=== PATIENT | male | born 1990 | race Caucasian/White ===

== ENCOUNTER 2017-01-01 17:45 | Emergency (ER) | payer SELFPAY ==
[~2017-01-01] VITALS: Ht 152.4 cm; Wt 74.8 kg
[2017-01-01] MEDS ORDERED: CLIN300C11 PO (18:13)
--- NOTE | 2017-01-01 18:42 | ED General ---
General Chief Complaint: Chest Pain Stated Complaint: CP Nursing Triage Note: pt reports stabbing chest pain starting wednesday, worsening today, with nausea. pt currently being treated with clindamycin for cellulitis/possible bug bite to lower right abd. Nursing Sepsis Screen: No Definite Risk Source of Information: Patient Exam Limitations: No Limitations (JOSÉ MOSS) History of Present Illness Time Seen by Provider: 18:42 Initial Comments Patient seen, evaluated, and patient care provided by Dr. Lopes. (JOSÉ MOSS) Initial Comments This 26 year old young man presents to the emergency room with substernal chest pain taht started about 2 days ago. The pain is relatively constant but he believes it is somewhat worse while eating. He has a sharp pain after completion of swallowing. Pain does not change with activity. It is occasionally worse with a very deep breath. He has not taken any medications for this pain. He has a small furuncle on the right abdomen for which he is taking clindamycin. The chest pain started around the same time he started the clindamycin 2 days ago. He does have a remote history of acid reflux. He rarely drinks alcohol and rarely uses tobacco. He has no history of prior episodes. 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 (KHRIS MONTIEL MD) Allergies and Home Medications Allergies Coded Allergies: No Known Drug Allergies (Unverified , 01/01/17) Home Medications Clindamycin HCl 300 Mg Capsule, 300 MG PO TID, (Reported) Omeprazole 20 Mg Capsule.dr, 20 MG PO BID, #30 Prescribed by: KHRIS LOPES on 01/01/17 8154 Constitutional: no symptoms reported EENTM: no symptoms reported Respiratory: see HPI Cardiovascular: no symptoms reported Gastrointestinal: see HPI Genitourinary: no symptoms reported Musculoskeletal: no symptoms reported Skin: no symptoms reported Psychiatric/Neurological: No Symptoms Reported Hematologic/Lymphatic: No Symptoms Reported Immunological/Allergic: no symptoms reported (KHRIS MONTIEL MD) Past Emdulck-Vpvutw-Dvavhk Hx Patient Social History Alcohol Use: Rarely Uses Recreational Drug Use: No Smoking Status: Never a Smoker 2nd Hand Smoke Exposure: Yes Recent Foreign Travel: No Contact w/Someone Who Travel: No Recent Infectious Disease Expo: No Recent Hopitalizations: No (JOSÉ MOSS) Immunizations Up To Date Tetanus Booster (TDap): More than 5yrs (JOSÉ MOSS) Seasonal Allergies Seasonal Allergies: No (JOSÉ MOSS) Surgeries History of Surgeries: Yes (ear tubes) Surgeries: Adenoidectomy (JOSÉ MOSS) Surgeries: Ear Surgery (TM tubes) (KHRIS MONTIEL MD) Respiratory History of Respiratory Disorde: No (JOSÉ MOSS) Cardiovascular History of Cardiac Disorders: No (JOSÉ MOSS) Neurological History of Neurological Disord: No (JOSÉ MOSS) Reproductive System Sexually Transmitted Disease: No (JOSÉ MOSS) Genitourinary History of Genitourinary Disor: No (JOSÉ MOSS) Gastrointestinal History of Gastrointestinal Di: Yes Gastrointestinal Disorders: Irritable Bowel (JOSÉ MOSS) Gastrointestinal Disorders: Gastroesophageal Reflux (KHRIS MONTIEL MD) Musculoskeletal History of Musculoskeletal Dis: Yes Musculoskeletal Disorders: Scoliosis (JOSÉ MOSS) Endocrine History of Endocrine Disorders: No (borderline diabetic) (JOSÉ MOSS) HEENT History of HEENT Disorders: No (JOSÉ MOSS) Cancer History of Cancer: No (JOSÉ MOSS) Psychosocial History of Psychiatric Problem: No (JOSÉ MOSS) Integumentary History of Skin or Integumenta: Yes (currently being treated for cellulitis/ bug bite) Skin/Integumentary Disorders: Recent Skin Changes (JOSÉ MOSS) Blood Transfusions History of Blood Disorders: No (JOSÉ MOSS) Physical Exam Vital Signs Vital Sign - Last 12Hours 01/01/17 01/01/17 18:07 18:13 Temp 99.0 Pulse 108 Resp 18 B/P (MAP) 125/89 Pulse Ox 96 O2 Delivery Room Air (KHRIS MONTIEL MD) Vital Signs Capillary Refill : Less Than 3 Seconds (JOSÉ MOSS) General Appearance: No Apparent Distress, WD/WN HEENT: PERRL/EOMI, Normal ENT Inspection Neck: Normal Inspection Respiratory: Lungs Clear, Normal Breath Sounds, No Accessory Muscle Use, No Respiratory Distress, Other (pain worsens when pressure applied to the sternal area) Cardiovascular: Regular Rate, Rhythm, No Edema, Normal Peripheral Pulses Gastrointestinal: Normal Bowel Sounds, Non Tender, Soft Extremity: Normal Inspection Neurologic/Psychiatric: Alert, Oriented x3, No Motor/Sensory Deficits, Normal 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 No fluctuant collection to drain.) (KHRIS MONTIEL MD) Progress/Results/Core Measures Results/Orders Lab Results Laboratory Tests Test 01/01/17 20:10 Range/Units White Blood Count 11.5 H 4.3-11.0 10^3/uL Red Blood Count 5.12 4.35-5.85 10^6/uL Hemoglobin 14.3 13.3-17.7 G/DL Hematocrit 42 40-54 % Mean Corpuscular Volume 82 80-99 FL Mean Corpuscular Hemoglobin 28 25-34 PG Mean Corpuscular Hemoglobin Concent 34 32-36 G/DL Red Cell Distribution Width 12.6 10.0-14.5 % Platelet Count 392 130-400 10^3/uL Mean Platelet Volume 8.6 7.4-10.4 FL Neutrophils (%) (Auto) 67 42-75 % Lymphocytes (%) (Auto) 22 12-44 % Monocytes (%) (Auto) 9 0-12 % Eosinophils (%) (Auto) 2 0-10 % Basophils (%) (Auto) 1 0-10 % Neutrophils # (Auto) 7.7 1.8-7.8 X 10^3 Lymphocytes # (Auto) 2.5 1.0-4.0 X 10^3 Monocytes # (Auto) 1.1 H 0.0-1.0 X 10^3 Eosinophils # (Auto) 0.2 0.0-0.3 10^3/uL Basophils # (Auto) 0.1 0.0-0.1 10^3/uL D-Dimer 0.29 0.00-0.49 UG/ML Sodium Level 140 135-145 MMOL/L Potassium Level 4.0 3.6-5.0 MMOL/L Chloride Level 104 98-107 MMOL/L Carbon Dioxide Level 21 21-32 MMOL/L Anion Gap 15 H 5-14 MMOL/L Blood Urea Nitrogen 15 7-18 MG/DL Creatinine 0.81 0.60-1.30 MG/DL Estimat Glomerular Filtration Rate > 60 BUN/Creatinine Ratio 19 Glucose Level 169 H 70-105 MG/DL Calcium Level 9.7 8.5-10.1 MG/DL Magnesium Level 2.1 1.8-2.4 MG/DL Total Bilirubin 0.2 0.1-1.0 MG/DL Aspartate Amino Transf (AST/SGOT) 24 5-34 U/L Alanine Aminotransferase (ALT/SGPT) 40 0-55 U/L Alkaline Phosphatase 66 40-136 U/L Troponin I < 0.30 <0.30 NG/ML Total Protein 7.2 6.4-8.2 GM/DL Albumin 4.0 3.2-4.5 GM/DL (KHRIS MONTIEL MD) My Orders Orders - KHRIS MONTIEL MD Lidocaine 2% Viscous 15 Ml (Xylocaine Vi (01/01/17 18:45) Antacid Suspension (Mylanta Suspension (01/01/17 18:45) Cbc With Automated Diff (01/01/17 19:35) Comprehensive Metabolic Panel (01/01/17 19:35) Magnesium (01/01/17 19:35) Troponin I (01/01/17 19:35) Chest Pa/Lat (2 View) (01/01/17 19:35) Ekg Tracing (01/01/17 19:35) Monitor-Rhythm Ecg Trace Only (01/01/17 19:35) Fibrin Degradation Products (01/01/17 20:01) Saline Lock/Iv-Start (01/01/17 20:02) (KHRIS MONTIEL MD) Medications Given in ED (KHRIS MONTIEL MD) Vital Signs/I&O (KHRIS MONTIEL MD) Blood Pressure Mean: 101 Progress Note #1: Time: 19:34 Progress Note Patient reports GI cocktail did not improve his pain. He also now wants to correct his history from earlier and states that the pain is sometimes worse with activity. labs, EKG and x-ray will now be performed. Progress Note #2: Progress Note Workup remained unremarkable. Patient may have sensitivity due to clindamycin or acid reflux. He was advised to start an antacid therapy and follow dietary restrictions. He was dismissed to outpatient follow-up. (KHRIS MONTIEL MD) ECG Initial ECG Impression Date: Jan 01, 2017 Initial ECG Impression Time: 20:37 Initial ECG Rate: 92 Initial ECG Rhythm: Normal Sinus Initial ECG Intervals: Normal Comment Normal sinus rhythm with no ST elevation or depression. No abnormal intervals or axis deviation. (KHRIS MONTIEL MD) Diagnostic Imaging Diagonstic Imaging: Xray Plain Films/CT/US/NM/MRI: chest Comments Chest x-ray viewed by me. Report reviewed. See report below: NAME: RACHEL DUQUE [facility] REC#: [id number] PT STATUS: REG ER : 1990 PHYSICIAN: KHRIS MONTIEL MD ADMIT DATE: 01/01/17/ER Signed Date of Exam: 01/01/17 CHEST PA/LAT (2 VIEW) INDICATION: Chest pain for two days. EXAMINATION: PA and lateral chest. FINDINGS: Heart size and pulmonary vascularity are normal. Lungs are clear. There are no effusions or pneumothoraces. IMPRESSION: Negative chest. Dictated by: Dictated on workstation # [id number] Dict: 01/01/171950 Trans: 01/01/171957 Interpreted by: BRUNO FLORES Electronically signed by: BRUNO FLORES 01/01/171957 (KHRIS MONTIEL MD) Departure Impression Impression: Primary Impression: Atypical chest pain Additional Impression: Furuncle of abdominal wall Disposition: 01 HOME, SELF-CARE Condition: Stable Departure-Patient Inst. Decision time for Depature: 21:34 (KHRIS MONTIEL MD) Referrals: NO,LOCAL PHYSICIAN (PCP) Primary Care Physician Patient Instructions: Chest Pain That Is Not Caused by the Heart (DC) Add. Discharge Instructions: The exact cause of your chest discomfort is not known at this time but it could be related to acid reflux and irritation from your antibiotics. Take your antibiotic with food or milk. Take omeprazole twice daily for the next 2 weeks. Follow-up with your primary care provider within the next week. Return to care if symptoms worsen. Avoid the following: Large meals, eating close to bedtime, carbonation, caffeine, chocolate, alcohol, tobacco products, tomato products, citrus fruits and juices, mints, spicy foods, fatty or greasy foods, or anything else you know irritates your stomach. All discharge instructions reviewed with patient and/or family. Voiced understanding. Scripts Omeprazole (Omeprazole) 20 Mg Capsule. 20 MG PO BID, #30 CAP Prov: KHRIS MONTIEL MD 01/01/17 JOSÉ MOSS Jan 01, 2017 18:42 KHRIS MONTIEL MD Jan 01, 2017 19:06
[2017-01-01] MEDS ORDERED: ANTACID SUSP 30 ML UDC (MYLANTA) PO ONE (18:45)
[2017-01-01] MEDS ORDERED: LIDOCAINE 2% VISCOUS 15 ML UDC PO ONE (18:45)
--- NOTE | 2017-01-01 19:54 | Diagnostic Imaging Report ---
INDICATION: Chest pain for two days. EXAMINATION: PA and lateral chest. FINDINGS: Heart size and pulmonary vascularity are normal. Lungs are clear. There are no effusions or pneumothoraces. IMPRESSION: Negative chest. Dictated by: Dictated on workstation # [id number]
[2017-01-01 20:16] LABS: BASOPHILS # (AUTO) 0.1 10^3/uL (0.0-0.1); BASOPHILS % (AUTO) 1 % (0-10); EOSINOPHILS # (AUTO) 0.2 10^3/uL (0.0-0.3); EOSINOPHILS % (AUTO) 2 % (0-10); LYMPHOCYTES # (AUTO) 2.5 X 10^3 (1.0-4.0); LYMPHOCYTES % (AUTO) 22 % (12-44); MEAN CORPUSCULAR HEMOGLOBIN 28 PG (25-34); MEAN CORPUSCULAR HGB CONC 34 G/DL (32-36); MEAN CORPUSCULAR VOLUME 82 FL (80-99); MEAN PLATELET VOLUME 8.6 FL (7.4-10.4); MONOCYTES # (AUTO) 1.1 X 10^3 (0.0-1.0); MONOCYTES % (AUTO) 9 % (0-12); NEUTROPHILS # (AUTO) 7.7 X 10^3 (1.8-7.8); NEUTROPHILS % (AUTO) 67 % (42-75); PLATELET COUNT 392 10^3/uL (130-400); RED BLOOD COUNT 5.12 10^6/uL (4.35-5.85); RED CELL DISTRIBUTION WIDTH 12.6 % (10.0-14.5); WHITE BLOOD COUNT 11.5 10^3/uL (4.3-11.0)
[2017-01-01 20:38] LABS: ALANINE AMINOTRANSFERASE 40 U/L (0-55); ANION GAP 15 MMOL/L (5-14); ASPARTATE AMINO TRANSFERASE 24 U/L (5-34); BILIRUBIN,TOTAL 0.2 MG/DL (0.1-1.0); BLOOD UREA NITROGEN 15 MG/DL (7-18); BUN/CREATININE RATIO 19; CALCIUM 9.7 MG/DL (8.5-10.1); CARBON DIOXIDE 21 MMOL/L (21-32); CHLORIDE 104 MMOL/L (98-107); CREATININE SERUM 0.81 MG/DL (0.60-1.30); GFR ESTIMATED > 60; GLUCOSE 169 MG/DL (70-105); MAGNESIUM 2.1 MG/DL (1.8-2.4); SODIUM 140 MMOL/L (135-145); TOTAL PROTEIN 7.2 GM/DL (6.4-8.2)
[2017-01-01 20:44] LABS: TROPONIN I < 0.30 NG/ML (<0.30)
[2017-01-01] MEDS ORDERED: OMEP20CA12 PO (21:36)
[2017-01-01 21:42] VITALS: BP 125/78
== END 2017-01-01 21:44 | disposition home or self-care (01) ==
LOC: ER 17:48
DX: R07.89 Other chest pain (principal); L02.221 Furuncle of abdominal wall; K21.9 Gastro-esophageal reflux disease without esophagitis; M41.20 Other idiopathic scoliosis, site unspecified; Z90.89 Acquired absence of other organs; Z87.19 Personal history of other diseases of the digestive system
CPT/HCPCS: 36415; 71020; 80053; 83735; 84484; 85025; 85379; 93005; 93041

== ENCOUNTER 2018-09-25 07:36 | Emergency (ER) | payer SELFPAY ==
[~2018-09-25] VITALS: Ht 152.4 cm; Wt 79.4 kg
[~2018-09-25 07:36] MED LIST: CLIN300C11 PO; OMEP20CA12 PO
--- OUTSIDE RECORDS SUMMARY | 2018-09-25 07:41 | XMS REPORT ---
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 Active 582832031 Problem Non morbid obesity due to excess calories E66.09 Active 561167990 Problem Elevated hemoglobin A1c R73.09 Active 781448772 Problem Episodic cluster headache, not intractable G44.019 Active 970717334 ALLERGIES No Known Allergies ENCOUNTERS Encounter Location Date Diagnosis [place] [address] [place] [id number] [place] [phone] Mar, [facility] [address] [address] Feb, [place] [id number] [place] [phone] 26 Jan, 2018 Pain in left shoulder M25.512 ; Other chronic pain G89.29 ; 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 ; Substernal chest pain R07.2 and Elevated hemoglobin A1c R73.09 [facility] [id number] [place] [address] Jan, [facility] [address] [address] Jan, Acute nasopharyngitis (common cold) J00 ; Intractable episodic headache, unspecified headache type R51 and Post-nasal drip R09.82 [place] [id number] [place] [address] Jan, [place] [address] [address] 12 Jan, 2017 Elevated hemoglobin A1c R73.09 [place] [id number] [place] [address] 11 Jan, 2017 [place] [id number] [place] [phone] 08 Jan, 2017 Frequent stools K52.9 and Non morbid obesity due to excess calories E66.09 [place] [id number] [place] [address] Dec, [place] [id number] [place] [address] Dec, [place] [id number] [place] [phone] Dec, [facility] [place] [id number] [place] [phone] Dec, Abscess L02.91 [facility] [place] [id number] [place] [address] Dec, Abscess, abdomen K65.1 [place] [id number] [place] [phone] Aug, Frequent stools K52.9 and Non morbid obesity due to excess calories E66.09 [place] [id number] [place] [phone] Mar, [place] [id number] [place] [phone] Mar, IMMUNIZATIONS No Known Immunizations SOCIAL HISTORY Never Assessed REASON FOR VISIT shoulder/wrist pain Pt c/o hurting L shoulder at work, also c/o L wrist pain and that his L wrist goes completely numb at times causing him to drop items. He a lso has chest pain at times which "drops him to his knees" which has been going on for 7 years. Pt is needing a note to clear him of heart issues, and cleared of injury to wrist and shoulder for work SEGUNDO Keenan PLAN OF CARE Activity Details Follow Up 4 Weeks Reason:pain VITAL SIGNS Height 60 in 2018-02-02 Weight 182.7 lbs 2018-02-02 Temperature 98.4 degrees Fahrenheit 2018-02-02 Heart Rate 88 bpm 2018-02-02 Respiratory Rate 18 2018-02-02 Oximetry 98 % 2018-02-02 BMI 35.68 kg/m2 2018-02-02 Blood pressure systolic 120 mmHg 2018-02-02 Blood pressure diastolic 80 mmHg 2018-02-02 MEDICATIONS Medication Instructions Dosage Frequency Start Date End Date Duration Status Protonix 40 mg Orally Once a day 1 tablet 24h Jan, 30 day(s) Active Flonase 50 MCG/ACT Nasally twice a day 1 spray in each nostril 12h Jan, 7 days Not-Taking RESULTS Name Result Date Reference Range A1C (IN HOUSE) 2018-02-02 A1C IN HOUSE 8.2 4.3 - 5.6 % Previous A1c Lot [id number] Exp date 07/2019 Xray : Shoulder, Left 2 view (IN HOUSE) 2018-02-02 PROCEDURES Procedure Date Ordered Result Body Site X-RAY EXAM OF SHOULDER Feb 02, 2018 GLYCATED HEMOGLOBIN TEST Feb 02, 2018 INSTRUCTIONS MEDICATIONS ADMINISTERED No Known Medications MEDICAL (GENERAL) HISTORY Type Description Date Medical History scoliosis Surgical History Adenoids removed Surgical History tubes in ears bilaterally Hospitalization History Spider Bite
--- OUTSIDE RECORDS SUMMARY | 2018-09-25 07:41 | XMS REPORT ---
Author Author AYUSH GOMEZ [facility] Address [address] [place] [address] Care Team Providers Care Wine Cellar Stock Clerk Name Role Phone AYUSH GOMEZ Unavailable PROBLEMS Type Condition ICD9-CM Code RRC15-ZN Code Onset Dates Condition Status SNOMED Code Problem Elevated hemoglobin A1c R73.09 Active 869829077 Problem Episodic cluster headache, not intractable G44.019 Active 763951692 Problem Non morbid obesity due to excess calories E66.09 Active 047732699 ALLERGIES No Information ENCOUNTERS Encounter Location Date Diagnosis [facility] [address] [address] 13 Jan, 2017 [facility] [address] [address] Jan, Elevated hemoglobin A1c R73.09 [facility] [address] [address] Jan, [facility] [address] [address] 08 Jan, 2017 Frequent stools K52.9 and Non morbid obesity due to excess calories E66.09 [facility] [address] [address] Dec, [facility] [address] [place] [id number] [place] [address] Dec, [facility] [address] [address] Dec, [facility] [address] [id number] [place] [address] Dec, Abscess L02.91 [facility] [address] [address] Dec, Abscess, abdomen K65.1 [place] [address], [place] [address] 13 Aug, 2016 Frequent stools K52.9 and Non morbid obesity due to excess calories E66.09 [place] [address], [place] [address] Mar, [place] [address] [place] [address] Mar, IMMUNIZATIONS No Known Immunizations SOCIAL HISTORY Never Assessed REASON FOR VISIT Lab results PLAN OF CARE VITAL SIGNS MEDICATIONS Unknown Medications RESULTS No Results PROCEDURES No Known procedures INSTRUCTIONS MEDICATIONS ADMINISTERED No Known Medications MEDICAL (GENERAL) HISTORY Type Description Date Medical History scoliosis Surgical History Adenoids removed, still has tonsils Hospitalization History Spider Bite
--- OUTSIDE RECORDS SUMMARY | 2018-09-25 07:41 | XMS REPORT ---
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 004842217 Problem Non morbid obesity due to excess calories E66.09 Active 896595763 Problem Elevated hemoglobin A1c R73.09 Active 580860640 Problem Episodic cluster headache, not intractable G44.019 Active 123489914 ALLERGIES No Known Allergies ENCOUNTERS Encounter Location Date Diagnosis [facility] [id number] [place] [address] Mar, [facility] [id number] [place] [address] Jan, Pain in left shoulder M25.512 ; Other chronic pain G89.29 ; 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 ; Substernal chest pain R07.2 and Elevated hemoglobin A1c R73.09 [facility] [id number] [place] [address] Jan, [facility] [id number] [place] [address] Jan, Acute nasopharyngitis (common cold) J00 ; Intractable episodic headache, unspecified headache type R51 and Post-nasal drip R09.82 [facility] [id number] [place] [address] Jan, [facility] [id number] [place] [address] Jan, Elevated hemoglobin A1c R73.09 [facility] [address] [place] [address] 11 Jan, 2017 [place] [address] [id number] [place] [address] 08 Jan, 2017 Frequent stools K52.9 and Non morbid obesity due to excess calories E66.09 [place] [id number] [place] [address] Dec, [place] [id number] [place] [address] Dec, [place] [id number] [place] [address] Dec, [facility] [place] [id number] [place] [address] Dec, Abscess L02.91 [facility] [place] [id number] [place] [address] Dec, Abscess, abdomen K65.1 [place] [id number] [place] [address] Aug, Frequent stools K52.9 and Non morbid obesity due to excess calories E66.09 [place] [id number] [place] [phone] Mar, [place] [id number] [place] [address] Mar, IMMUNIZATIONS No Known Immunizations SOCIAL HISTORY Never Assessed REASON FOR VISIT sore throat, cough, runny et stuffy nose, congestion for 4 days. [email or web address] PLAN OF CARE Activity Details Follow Up prn Reason: VITAL SIGNS Height 60 in 2018-01-13 Weight 181.4 lbs 2018-01-13 Temperature 98.9 degrees Fahrenheit 2018-01-13 Heart Rate 86 bpm 2018-01-13 Respiratory Rate 20 2018-01-13 BMI 35.42 kg/m2 2018-01-13 Blood pressure systolic 136 mmHg 2018-01-13 Blood pressure diastolic 78 mmHg 2018-01-13 MEDICATIONS Medication Instructions Dosage Frequency Start Date End Date Duration Status Flonase 50 MCG/ACT Nasally twice a day 1 spray in each nostril 12Jan, 07 days Active RESULTS No Results PROCEDURES No Known procedures INSTRUCTIONS MEDICATIONS ADMINISTERED No Known Medications MEDICAL (GENERAL) HISTORY Type Description Date Medical History scoliosis Surgical History Adenoids removed Surgical History tubes in ears bilaterally Hospitalization History Spider Bite
--- OUTSIDE RECORDS SUMMARY | 2018-09-25 07:41 | XMS REPORT ---
Author Author EDWIGE Gold [facility] Address [address] [place] [address] Care Team Providers Care Fine Dining Server Name Role Phone EDWIGE Gold Unavailable PROBLEMS Type Condition ICD9-CM Code EBA53-GH Code Onset Dates Condition Status SNOMED Code Problem Elevated hemoglobin A1c R73.09 Active 728036536 Problem Episodic cluster headache, not intractable G44.019 Active 720750305 Problem Non morbid obesity due to excess calories E66.09 Active 068560690 ALLERGIES No Information ENCOUNTERS Encounter Location Date Diagnosis [facility] [address] [address] 13 Jan, 2017 [facility] [address] [address] 12 Jan, 2017 Elevated hemoglobin A1c R73.09 [facility] [address] [address] Jan, [facility] [id number] [place] [address] Jan, Frequent stools K52.9 and Non morbid obesity due to excess calories E66.09 [facility] [id number] [place] [address] Dec, [facility] [id number] [place] [address] Dec, [facility] [address] [address] Dec, [facility] [id number] [place] [address] Dec, Abscess L02.91 [facility] [address] [place] [address] 16 Dec, 2016 Abscess, abdomen K65.1 [place] [address] [address] 13 Aug, 2016 Frequent stools K52.9 and Non morbid obesity due to excess calories E66.09 [place] [id number] [place] [address] 11 Mar, 2009 [place] [address] [place] [address] Mar, IMMUNIZATIONS No Known Immunizations SOCIAL HISTORY Never Assessed REASON FOR VISIT TRIAGE PLAN OF CARE VITAL SIGNS MEDICATIONS Unknown Medications RESULTS No Results PROCEDURES No Known procedures INSTRUCTIONS MEDICATIONS ADMINISTERED No Known Medications MEDICAL (GENERAL) HISTORY Type Description Date Medical History scoliosis Surgical History Adenoids removed, still has tonsils Hospitalization History Spider Bite
--- OUTSIDE RECORDS SUMMARY | 2018-09-25 07:41 | XMS REPORT ---
Author Author AYUSH GOMEZ [facility] Address [address] [place] [address] Care Team Providers Care Strategic Partnership Manager Name Role Phone AYUSH GOMEZ Unavailable PROBLEMS Type Condition ICD9-CM Code PVR16-UJ Code Onset Dates Condition Status SNOMED Code Problem Elevated hemoglobin A1c R73.09 Active 459436292 Problem Episodic cluster headache, not intractable G44.019 Active 578651399 Problem Non morbid obesity due to excess calories E66.09 Active 996984333 ALLERGIES No Information ENCOUNTERS Encounter Location Date Diagnosis [facility] [address] [address] 13 Jan, 2017 [facility] [address] [address] Jan, Elevated hemoglobin A1c R73.09 [facility] [address] [address] Jan, [facility] [address] [address] 08 Jan, 2017 Frequent stools K52.9 and Non morbid obesity due to excess calories E66.09 [facility] [address] [address] Dec, [facility] [address] [place] [id number] [place] [address] Dec, [facility] [address] [address] Dec, [facility] [id number] [place] [address] Dec, Abscess L02.91 [facility] [address] [address] Dec, Abscess, abdomen K65.1 [place] [address] [address] 13 Aug, 2016 Frequent stools K52.9 and Non morbid obesity due to excess calories E66.09 [place] [address] [address] Mar, [place] [address] [address] Mar, IMMUNIZATIONS No Known Immunizations SOCIAL HISTORY Never Assessed REASON FOR VISIT Paperwork PLAN OF CARE VITAL SIGNS MEDICATIONS Unknown Medications RESULTS No Results PROCEDURES No Known procedures INSTRUCTIONS MEDICATIONS ADMINISTERED No Known Medications MEDICAL (GENERAL) HISTORY Type Description Date Medical History scoliosis Surgical History Adenoids removed, still has tonsils Hospitalization History Spider Bite
--- OUTSIDE RECORDS SUMMARY | 2018-09-25 07:41 | XMS REPORT ---
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 Active 494309390 Problem Non morbid obesity due to excess calories E66.09 Active 220063430 Problem Elevated hemoglobin A1c R73.09 Active 465478896 Problem Episodic cluster headache, not intractable G44.019 Active 987346737 ALLERGIES No Information ENCOUNTERS Encounter Location Date Diagnosis [place] [address] [address] Mar, [facility] [address] [address] Feb, [place] [address] [address] Feb, [place] [address] [address] Jan, Pain in left shoulder M25.512 ; Other chronic pain G89.29 ; 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 ; Substernal chest pain R07.2 and Elevated hemoglobin A1c R73.09 [facility] [address] [address] Jan, [facility] [address] [address] 06 Jan, 2018 Acute nasopharyngitis (common cold) J00 ; Intractable episodic headache, unspecified headache type R51 and Post-nasal drip R09.82 [place] [address], [place] [address] 13 Jan, 2017 [facility] [address] [id number] [place] [address] 12 Jan, 2017 Elevated hemoglobin A1c R73.09 [facility] [address] [place] [address] 11 Jan, 2017 [facility] [address] [place] [id number] [place] [address] Jan, Frequent stools K52.9 and Non morbid obesity due to excess calories E66.09 [place] [address] [place] [address] [id number] [place] [address] Dec, [facility] [address] [place] [id number] [place] [address] Dec, [facility] [address] [id number] [place] [address] Dec, [facility] [address] [place] [address] Dec, Abscess L02.91 [facility] [id number] [place] [address] 16 Dec, 2016 Abscess, abdomen K65.1 [facility] [address] [place] [address] Aug, Frequent stools K52.9 and Non morbid obesity due to excess calories E66.09 [facility] [address], [place] [address] Mar, [facility] [address] [place] [id number] [place] [address] Mar, IMMUNIZATIONS No Known Immunizations SOCIAL HISTORY Never Assessed REASON FOR VISIT Xray results PLAN OF CARE VITAL SIGNS MEDICATIONS Unknown Medications RESULTS No Results PROCEDURES No Known procedures INSTRUCTIONS MEDICATIONS ADMINISTERED No Known Medications MEDICAL (GENERAL) HISTORY Type Description Date Medical History scoliosis Surgical History Adenoids removed Surgical History tubes in ears bilaterally Hospitalization History Spider Bite
--- OUTSIDE RECORDS SUMMARY | 2018-09-25 07:41 | XMS REPORT ---
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 Active 757612416 Problem Other chronic pain G89.29 Active 01143930 ALLERGIES No Known Allergies ENCOUNTERS Encounter Location Date Diagnosis [facility] [address] [address] Apr, Witnessed apneic spells R06.81 ; Snoring R06.83 and Excessive sleepiness G47.10 [facility] [address] [place] [id number] [place] [address] Feb, [facility] [id number] [place] [address] Feb, [facility] [address] [place] [id number] [place] [address] Jan, Pain in left shoulder M25.512 ; Other chronic pain G89.29 ; 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 ; Substernal chest pain R07.2 and Elevated hemoglobin A1c R73.09 [facility] [id number] [place] [address] Jan, [facility] [address] [address] 06 Jan, 2018 Acute nasopharyngitis (common cold) J00 ; Intractable episodic headache, unspecified headache type R51 and Post-nasal drip R09.82 [place] [address] [place] [address] [id number] [place] [address] 13 Jan, 2017 [place] [address] [place] [id number] [place] [address] Jan, Elevated hemoglobin A1c R73.09 [place] [address] [address] Jan, [place] [address] [address] 08 Jan, 2017 Frequent stools K52.9 and Non morbid obesity due to excess calories E66.09 [place] [address] [address] Dec, [place] [address] [address] Dec, [place] [address] [place] [id number] [place] [address] Dec, [facility] [place] [address] [place] [address] [id number] [place] [address] Dec, Abscess L02.91 [facility] [place] [address] [place] [id number] [place] [address] Dec, Abscess, abdomen K65.1 [place] [address] [place] [id number] [place] [address] 13 Aug, 2016 Frequent stools K52.9 and Non morbid obesity due to excess calories E66.09 [place] [address] [address] Mar, [place] [address] [place] [id number] [place] [address] Mar, IMMUNIZATIONS No Known Immunizations SOCIAL HISTORY Never Assessed REASON FOR VISIT sleep concerns-twooden,RMA, pt complaining about not able to sleep at night and he is having real bad head aches and snoring PLAN OF CARE Activity Details Follow Up prn Reason: Future/Pending Procedure SLEEP STUDY (HOSPITAL) VITAL SIGNS Height 60 in 2018-04-27 Weight 182.6 lbs 2018-04-27 Temperature 97.8 degrees Fahrenheit 2018-04-27 Heart Rate 80 bpm 2018-04-27 Respiratory Rate 18 2018-04-27 Oximetry on room air:98 % 2018-04-27 BMI 35.66 kg/m2 2018-04-27 Blood pressure systolic 120 mmHg 2018-04-27 Blood pressure diastolic 100 mmHg 2018-04-27 MEDICATIONS No Known Medications RESULTS No Results PROCEDURES No Known procedures INSTRUCTIONS MEDICATIONS ADMINISTERED No Known Medications MEDICAL (GENERAL) HISTORY Type Description Date Medical History scoliosis Surgical History Adenoids removed Surgical History tubes in ears bilaterally Hospitalization History Spider Bite
--- OUTSIDE RECORDS SUMMARY | 2018-09-25 07:41 | XMS REPORT ---
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 Active 286386805 Problem Non morbid obesity due to excess calories E66.09 Active 949023220 Problem Elevated hemoglobin A1c R73.09 Active 597032296 Problem Episodic cluster headache, not intractable G44.019 Active 345512143 ALLERGIES No Information ENCOUNTERS Encounter Location Date Diagnosis [facility] [address] [address] Mar, [facility] [address] [address] Jan, Pain in left shoulder M25.512 ; Other chronic pain G89.29 ; 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 ; Substernal chest pain R07.2 and Elevated hemoglobin A1c R73.09 [facility] [address] [place] [id number] [place] [address] Jan, [facility] [address] [address] Jan, Acute nasopharyngitis (common cold) J00 ; Intractable episodic headache, unspecified headache type R51 and Post-nasal drip R09.82 [facility] [address] [address] Jan, [facility] [address] [place] [id number] [place] [address] Jan, Elevated hemoglobin A1c R73.09 [place] [address], [place] [address] 11 Jan, 2017 [place] [address] [place] [id number] [place] [address] 08 Jan, 2017 Frequent stools K52.9 and Non morbid obesity due to excess calories E66.09 [place] [address] [place] [id number] [place] [address] Dec, [place] [address] [place] [id number] [place] [address] Dec, [place] [address] [place] [id number] [place] [address] Dec, [facility] [address] [place] [id number] [place] [address] 18 Dec, 2016 Abscess L02.91 [facility] [place] [address] [place] [id number] [place] [address] 16 Dec, 2016 Abscess, abdomen K65.1 [place] [address] [place] [id number] [place] [address] 13 Aug, 2016 Frequent stools K52.9 and Non morbid obesity due to excess calories E66.09 [place] [address] [place] [address], [place] [address] Mar, [place] [address] [place] [id number] [place] [address] Mar, IMMUNIZATIONS No Known Immunizations SOCIAL HISTORY Never Assessed REASON FOR VISIT pt was in the [facility] yesterday et reported a fever. was discharged on flonase et be nadryl. pt reports he picked up the flonase, but didnt start any benadryl. wants another note to excuse him from work today. melita, pt given a note that he was seen again today et a note to return to work on wednesday PLAN OF CARE VITAL SIGNS Height 60 in 2018-01-14 Weight 179.8 lbs 2018-01-14 Temperature 98.6 degrees Fahrenheit 2018-01-14 Heart Rate 80 bpm 2018-01-14 Respiratory Rate 20 2018-01-14 BMI 35.11 kg/m2 2018-01-14 Blood pressure systolic 130 mmHg 2018-01-14 Blood pressure diastolic 78 mmHg 2018-01-14 MEDICATIONS Medication Instructions Dosage Frequency Start Date End Date Duration Status Flonase 50 MCG/ACT Nasally twice a day 1 spray in each nostril 12h 06 Jan, 2018 7 days Active RESULTS No Results PROCEDURES No Known procedures INSTRUCTIONS MEDICATIONS ADMINISTERED No Known Medications MEDICAL (GENERAL) HISTORY Type Description Date Medical History scoliosis Surgical History Adenoids removed Surgical History tubes in ears bilaterally Hospitalization History Spider Bite
--- OUTSIDE RECORDS SUMMARY | 2018-09-25 07:41 | XMS REPORT ---
Author Author AYUSH GOMEZ [facility] Address [address] [place] [address] Care Team Providers Care Rebar Fabricator Name Role Phone AYUSH GOMEZ Unavailable PROBLEMS Type Condition ICD9-CM Code MNG83-AS Code Onset Dates Condition Status SNOMED Code Problem Elevated hemoglobin A1c R73.09 Active 980693569 Problem Episodic cluster headache, not intractable G44.019 Active 469463687 Problem Non morbid obesity due to excess calories E66.09 Active 084625665 ALLERGIES No Information ENCOUNTERS Encounter Location Date Diagnosis [facility] [address] [address] Jan, [facility] [address] [address] Jan, Elevated hemoglobin A1c R73.09 [facility] [address] [address] Jan, [facility] [address] [address] Jan, Frequent stools K52.9 and Non morbid obesity due to excess calories E66.09 [facility] [address] [address] Dec, [facility] [address] [place] [id number] [place] [address] Dec, [facility] [address] [address] Dec, [facility] [address] [place] [id number] [place] [address] Dec, Abscess L02.91 [facility] [address] [address] Dec, Abscess, abdomen K65.1 [place] [address], [place] [address] 13 Aug, 2016 Frequent stools K52.9 and Non morbid obesity due to excess calories E66.09 [place] [address], [place] [address] Mar, [place] [address], [place] [address] Mar, IMMUNIZATIONS No Known Immunizations SOCIAL HISTORY Never Assessed REASON FOR VISIT Per lab results PLAN OF CARE VITAL SIGNS MEDICATIONS Unknown Medications RESULTS No Results PROCEDURES No Known procedures INSTRUCTIONS MEDICATIONS ADMINISTERED No Known Medications MEDICAL (GENERAL) HISTORY Type Description Date Medical History scoliosis Surgical History Adenoids removed, still has tonsils Hospitalization History Spider Bite
--- OUTSIDE RECORDS SUMMARY | 2018-09-25 07:42 | XMS REPORT ---
Author Author AYUSH GOMEZ [facility] Address [address] [place] [address] Care Team Providers Care Theatre Instructor Name Role Phone AYUSH GOMEZ Unavailable PROBLEMS Type Condition ICD9-CM Code VDJ09-CT Code Onset Dates Condition Status SNOMED Code Problem Elevated hemoglobin A1c R73.09 Active 565635324 Problem Episodic cluster headache, not intractable G44.019 Active 369701630 Problem Non morbid obesity due to excess calories E66.09 Active 219383186 ALLERGIES No Information ENCOUNTERS Encounter Location Date Diagnosis [facility] [address] [address] 13 Jan, 2017 [facility] [address] [address] Jan, Elevated hemoglobin A1c R73.09 [facility] [address] [address] Jan, [facility] [address] [address] 08 Jan, 2017 Frequent stools K52.9 and Non morbid obesity due to excess calories E66.09 [facility] [address] [address] Dec, [facility] [address] [place] [id number] [place] [address] Dec, [facility] [address] [address] Dec, [facility] [address] [place] [address] [id number] [place] [address] Dec, Abscess L02.91 [facility] [address] [address] 16 Dec, 2016 Abscess, abdomen K65.1 [place] [address] [place] [address], [place] [address] 13 Aug, 2016 Frequent stools K52.9 and Non morbid obesity due to excess calories E66.09 [place] [address] [facility] [id number] [address] 11 Mar, 2009 [place] [address] [place] [address], [place] [address] 11 Mar, 2009 IMMUNIZATIONS No Known Immunizations SOCIAL HISTORY Never Assessed REASON FOR VISIT Lab (walk-in) PLAN OF CARE VITAL SIGNS MEDICATIONS Unknown Medications RESULTS Name Result Date Reference Range TSH W/ FREE T4 2017-01-15 TSH 2.540 0.450-4.500 T4,Free(Direct) 1.24 0.82-1.77 A1C 2017-01-15 Hemoglobin A1c 6.5 4.8-5.6 CBC 2017-01-15 WBC 8.4 3.4-10.8 RBC 5.48 4.14-5.80 Hemoglobin 15.4 12.6-17.7 Hematocrit 45.3 37.5-51.0 MCV 83 79-97 MCH 28.1 26.6-33.0 MCHC 34.0 31.5-35.7 RDW 13.1 12.3-15.4 Platelets 447 150-379 Neutrophils 56 Lymphs 30 Monocytes 9 Eos 3 Basos 1 Neutrophils (Absolute) 4.9 1.4-7.0 Lymphs (Absolute) 2.5 0.7-3.1 Monocytes(Absolute) 0.7 0.1-0.9 Eos (Absolute) 0.2 0.0-0.4 Baso (Absolute) 0.0 0.0-0.2 Immature Granulocytes 1 Immature Grans (Abs) 0.1 0.0-0.1 LIPID PANEL 2017-01-15 Cholesterol, Total 228 100-199 Triglycerides 105 0-149 HDL Cholesterol 52 >39 VLDL Cholesterol Michael 21 5-40 LDL Cholesterol Calc 155 0-99 CMP 2017-01-15 Glucose, Serum 121 65-99 BUN 10 6-20 Creatinine, Serum 0.81 0.76-1.27 eGFR If NonAfricn Am 123 >59 eGFR If Africn Am 142 >59 BUN/Creatinine Ratio 12 9-20 Sodium, Serum 142 134-144 Potassium, Serum 4.4 3.5-5.2 Chloride, Serum 99 96-106 Carbon Dioxide, Total 23 18-29 Calcium, Serum 9.9 8.7-10.2 Protein, Total, Serum 7.7 6.0-8.5 Albumin, Serum 4.6 3.5-5.5 Globulin, Total 3.1 1.5-4.5 A/G Ratio 1.5 1.2-2.2 Bilirubin, Total 0.3 0.0-1.2 Alkaline Phosphatase, S 57 39-117 AST (SGOT) 25 0-40 ALT (SGPT) 40 0-44 PROCEDURES Procedure Date Ordered Result Body Site ASSAY THYROID STIM HORMONE Jan 15, 2017 ASSAY OF FREE THYROXINE Jan 15, 2017 VENIPUNCT, ROUTINE* Jan 15, 2017 COMPLETE CBC W/AUTO DIFF WBC Jan 15, 2017 Hemoglobin Test Send Out 0 dollar Jan 15, 2017 COMPREHEN METABOLIC PANEL Jan 15, 2017 LIPID PANEL Jan 15, 2017 INSTRUCTIONS MEDICATIONS ADMINISTERED No Known Medications MEDICAL (GENERAL) HISTORY Type Description Date Medical History scoliosis Surgical History Adenoids removed, still has tonsils Hospitalization History Spider Bite
--- OUTSIDE RECORDS SUMMARY | 2018-09-25 07:42 | XMS REPORT ---
Author Author AYUSH GOMEZ [facility] Address [address] [place] [address] Care Team Providers Care Architect Intern Name Role Phone AYUSH GOMEZ Unavailable PROBLEMS Type Condition ICD9-CM Code SRS76-ET Code Onset Dates Condition Status SNOMED Code Problem Elevated hemoglobin A1c R73.09 Active 611554086 Problem Episodic cluster headache, not intractable G44.019 Active 226414645 Problem Non morbid obesity due to excess calories E66.09 Active 171233888 ALLERGIES No Information ENCOUNTERS Encounter Location Date Diagnosis [facility] [address] [address] 13 Jan, 2017 [facility] [address] [address] Jan, Elevated hemoglobin A1c R73.09 [facility] [address] [address] Jan, [facility] [address] [address] 08 Jan, 2017 Frequent stools K52.9 and Non morbid obesity due to excess calories E66.09 [facility] [address] [address] Dec, [facility] [address] [place] [id number] [place] [address] Dec, [facility] [address] [address] Dec, [facility] [address] [place] [address] [id number] [place] [address] Dec, Abscess L02.91 [facility] [address] [address] Dec, Abscess, abdomen K65.1 [place] [address], [place] [address] 13 Aug, 2016 Frequent stools K52.9 and Non morbid obesity due to excess calories E66.09 [place] [address], [place] [address] Mar, [place] [address], [place] [address] Mar, IMMUNIZATIONS No Known Immunizations SOCIAL HISTORY Never Assessed REASON FOR VISIT Paperwork PLAN OF CARE VITAL SIGNS MEDICATIONS Unknown Medications RESULTS No Results PROCEDURES No Known procedures INSTRUCTIONS MEDICATIONS ADMINISTERED No Known Medications MEDICAL (GENERAL) HISTORY Type Description Date Medical History scoliosis Surgical History Adenoids removed, still has tonsils Hospitalization History Spider Bite
--- NOTE | 2018-09-25 09:14 | ED Upper Extremity ---
General Chief Complaint: Upper Extremity Stated Complaint: L SHOULDER PAIN Nursing Triage Note: pt presents to ed with complaints of l shoulder pain near his shoulder blade. pt states it woke him up around 5:00 am. Pt denies any known injury. Pt reports pain is worse with movement. Nursing Sepsis Screen: No Definite Risk Source: patient, family (dad) Exam Limitations: no limitations History of Present Illness Date Seen by Provider: September 25, 2018 Time Seen by Provider: 08:56 Initial Comments Patient presents to ER by private conveyance with chief complaint of acute on chronic injury in his left shoulder. He's been having some aggravation ever since a incident at the [employer] with his left shoulder and today he said he just woke up sleeping and had some pain in his left shoulder that did not radiate. It occasionally has some zingers but no neck or back pain. No history of surgery. At the time he had it worked looked at by the [facility] physician and they thought that he just had a sprain put him on some conservative management and it made it better. This was approximately one year. Today's having no numbness or tingling. No incident of trauma or lifting any thing or doing any repetitive motions. He works at [employer]. He has not taken anything for the pain. He got up, stretched it out and when he did not improve he asked his father to bring him to the ER. Allergies and Home Medications Allergies Coded Allergies: No Known Drug Allergies (Unverified , 01/01/17) Home Medications Clindamycin HCl 300 Mg Capsule, 300 MG PO TID, (Reported) Omeprazole 20 Mg Capsule.dr, 20 MG PO BID Prescribed by: KHRIS JOHNS on 01/01/17 2076 Patient Home Medication List Home Medication List Reviewed: Yes Review of Systems Constitutional: No chills, No diaphoresis EENTM: No ear discharge, No hearing loss, No ear pain Respiratory: No cough, No short of breath Cardiovascular: No chest pain, No edema Gastrointestinal: No abdominal pain, No constipation Past Yzfiwlw-Pitlfe-Gacgug Hx Patient Social History Alcohol Use: Denies Use Recreational Drug Use: No Smoking Status: Never a Smoker 2nd Hand Smoke Exposure: Yes Recent Foreign Travel: No Contact w/Someone Who Travel: No Recent Infectious Disease Expo: No Recent Hopitalizations: No Physical Abuse: No Sexual Abuse: No Mistreated: No Fear: No Immunizations Up To Date Tetanus Booster (TDap): More than 5yrs Seasonal Allergies Seasonal Allergies: No Past Medical History Surgeries: Yes (ear tubes) Adenoidectomy, Ear Surgery Respiratory: No Cardiac: No Neurological: No Sexually Transmitted Disease: No Genitourinary: No Gastrointestinal: Yes Gastroesophageal Reflux Musculoskeletal: Yes Scoliosis Endocrine: No (borderline diabetic) HEENT: No Cancer: No Psychosocial: No Integumentary: Yes (currently being treated for cellulitis/bug bite) Recent Skin Changes Blood Disorders: No Physical Exam Vital Signs Vital Signs - First Documented 09/25/18 08:09 Temp 96.6 Pulse 110 Resp 20 B/P (MAP) 141/99 (113) Pulse Ox 97 Capillary Refill : Less Than 3 Seconds Height, Weight, BMI Height: 5'0" Weight: 175lbs. oz. [id number]; BMI Method:Stated General Appearance: WD/WN, mild distress HEENT: PERRL/EOMI, pharynx normal Neck: non-tender, full range of motion, supple, normal inspection Cardiovascular: normal peripheral pulses, regular rate, rhythm, no edema Respiratory: chest non-tender, lungs clear, normal breath sounds, no respiratory distress, no accessory muscle use Shoulder: normal inspection, normal ROM (lacks about 15 of active range of motion but full passive range of motion), pain (pain on abduction and flexion left shoulder), soft tissue tenderness (medial border of the left scapula. No pain in the shoulder.) Elbow/Forearm: normal inspection, non-tender, no evidence of injury, normal ROM, Left Neurologic/Tendon: normal sensation, normal motor functions, responds to pain Neurologic/Psychiatric: alert, oriented x 3 Skin: normal color, warm/dry Progress/Results/Core Measures Results/Orders My Orders Orders - FLORENCE KELLEY Ketorolac Injection (Toradol Injection) (09/25/18 09:15) Vital Signs/I&O 09/25/18 08:09 Temp 96.6 Pulse 110 Resp 20 B/P (MAP) 141/99 (113) Pulse Ox 97 Blood Pressure Mean: 113 Progress Progress Note : Time: 09:13 Progress Note Nontraumatic,musculoskeletal acute on chronic left shoulder pain. We'll start with conservative measures. There is no role for plain film x-rays. We will set him up for a 1 week follow-up with orthopedics Dr. Conway. Departure Impression Primary Impression: Shoulder pain, left Qualified Codes: M25.512 - Pain in left shoulder Disposition: 01 HOME, SELF-CARE Condition: Stable Departure-Patient Inst. Decision time for Depature: 09:15 Referrals: [facility] (PCP/Family) Primary Care Physician Patient Instructions: How to Use a Shoulder Sling, Shoulder Pain (DC) Add. Discharge Instructions: Wear the sling throughout the day but take it off several times and do some range of motion stretching exercises in her left shoulder. Use a heating pad, topical creams such as icy hot or Biofreeze. Take Naprosyn [id number] 2 capsules twice a day on a schedule for the next 2 weeks or the prescription strength one capsule twice a day . For breakthrough pain you can use Tylenol 1000 mg every 8 hours as needed. supervisor baking the prednisone and take One tablet twice a day for the next 5 days to reduce the inflammation in your shoulder. Cyclobenzaprine can be used if you're having muscle spasms in your back or neck one tablet every 8 hours but may cause drowsiness. Call the orthopedic surgeon tomorrow and get an appointment for 7-10 days for reexamination. All discharge instructions reviewed with patient and/or family. Voiced understanding. Scripts Prednisone (Prednisone) 20 Mg Tab 20 MG PO BID for 5 Days, #10 TAB 0 Refills Prov: FLORENCE KELLEY 09/25/18 Naproxen (Naprosyn) 500 Mg Tablet 500 MG PO BID for 14 Days, #30 TAB 0 Refills Prov: FLORENCE KELLEY 09/25/18 Cyclobenzaprine HCl (Cyclobenzaprine HCl) 10 Mg Tablet 10 MG PO Q8H PRN for SPASMS, #15 TAB 0 Refills Prov: FLORENCE KELLEY 09/25/18 Work/School Note: Work Release Form Date Seen in the Emergency Department: September 25, 2018 Return to Work: September 27, 2018 Restrictions: Need Release from Doctor Other Restrictions Listed Below: Wear sling and left arm no lift more than 10# until 10/03/18. Copy Copies To 1: JAYDON CONWAY MD, TITUS J September 25, 2018 09:14
[2018-09-25] MEDS ORDERED: KETOROLAC 30 MG/ML VIAL IM ONE (09:15)
[2018-09-25] MEDS ORDERED: NAPR-1071 PO (09:19)
[2018-09-25] MEDS ORDERED: CYCL10TA9 PO (09:19)
[2018-09-25] MEDS ORDERED: PRD20T PO (09:19)
[2018-09-25 09:42] VITALS: BP 123/89
== END 2018-09-25 09:44 | disposition home or self-care (01) ==
LOC: EDUNIT# 07:36 → ER 07:37
DX: M25.512 Pain in left shoulder (principal); K21.9 Gastro-esophageal reflux disease without esophagitis; M41.9 Scoliosis, unspecified; Z90.89 Acquired absence of other organs; Z96.22 Myringotomy tube(s) status; Z77.22 Contact with and (suspected) exposure to environmental tobacco smoke (acute) (chronic); X58.XXXA Exposure to other specified factors, initial encounter; Y92.59 Other trade areas as the place of occurrence of the external cause; Y99.0 Civilian activity done for income or pay
CPT/HCPCS: 99284

== ENCOUNTER → 2020-08-19 | Outpatient (CLI) | payer SELFPAY ==
[~2020-08-19] MED LIST changes: -CLIN300C11 PO; +CLIN300C12 PO; +CYCL10TA9 PO; +NAPR-1071 PO; -OMEP20CA12 PO; +OMEP20CA18 PO; +PRD20T PO
--- NOTE | 2020-08-19 12:32 | Diagnostic Imaging Report ---
PROCEDURE: MRI right joint upper extremity without contrast. TECHNIQUE: Multiplanar, multisequence non contrast-enhanced MRI of the right upper extremity was accomplished. INDICATION: Right shoulder pain since fall from horse 10 years ago. COMPARISON: None. FINDINGS: No acute fracture or dislocation is seen in the right shoulder. Alignment is normal. There is no joint effusion. There is mild tendinosis and a tiny low-grade partial tear at the insertion of the infraspinatus tendon. The teres minor tendon is intact. The subscapularis tendon demonstrates low-grade partial-thickness tearing at the insertion. The long head of the biceps tendon is normal in course and signal. The glenoid labrum is suboptimally evaluated in the absence of intra-articular contrast. There does appear to be tearing posteriorly. There is a small posteroinferior paralabral cyst which measures 9 mm in length, and 1 to 2 mm in width. There is mild arthropathy in the acromioclavicular joint. The acromion has a slightly curved undersurface without hooking. The coracoclavicular and coracoacromial ligaments are intact. IMPRESSION: 1. Posterior right glenoid labrum tear with a small paralabral cyst. 2. Small low-grade partial-thickness tears of the infraspinatus and subscapularis tendons. No high-grade partial-thickness or full-thickness rotator cuff tear. Dictated by: Dictated on workstation # [id number]
== END ==
LOC: RAD 09:56
PROVIDERS: ATTEND Nurse Practitioner
DX: S41.011A Laceration without foreign body of right shoulder, initial encounter (principal); M71.311 Other bursal cyst, right shoulder; S46.811A Strain of other muscles, fascia and tendons at shoulder and upper arm level, right arm, initial encounter; M25.811 Other specified joint disorders, right shoulder
CPT/HCPCS: 73221